=== PATIENT | female | born 2000 | race Caucasian/White ===

== ENCOUNTER 2018-04-20 08:42 | Emergency (ER) | payer SELFPAY ==
[~2018-04-20] VITALS: Ht 147.3 cm; Wt 57.2 kg
[2018-04-20 09:03] LABS: BILIRUBIN,URINE NEGATIVE (NEGATIVE); CLARITY,URINE CLEAR (CLEAR); COLOR,URINE YELLOW (YELLOW); KETONES,URINE NEGATIVE (NEGATIVE); LEUKOCYTE ESTERASE ,URINE NEGATIVE (NEGATIVE); NITRITE,URINE NEGATIVE (NEGATIVE); PROTEIN,URINE DIPSTICK NEGATIVE (NEGATIVE); URINE UROBILINOGEN 0.2 mg/dL (0.2 - 1)
[2018-04-20 09:18] LABS: BASOPHILS % 0.4 % (0.0-1.0); EOSINOPHILS # (AUTO) 0.1 (0.0-0.4); EOSINOPHILS % 0.5 % (0.0-6.0); HEMATOCRIT 37.7 % (34.2-44.1); LYMPHOCYTES # (AUTO) 2.7 (1.0-3.2); LYMPHOCYTES % 26.9 % (18.0-39.1); MEAN CORPUSCULAR HEMOGLOBIN 29.8 pg (28-32); MEAN CORPUSCULAR HGB CONC 34.5 g/dL (31-35); MEAN CORPUSCULAR VOLUME 86.5 fL (81-99); MONOCYTES # (AUTO) 0.6 (0.2-0.8); MONOCYTES % 6.3 % (4.4-11.3); NEUTROPHILS # (AUTO) 6.6 (2.1-6.9); NEUTROPHILS % 65.6 % (38.7-80.0); PLATELET COUNT 237 x10e3/uL (140-360); RED BLOOD COUNT 4.36 x10e6/uL (3.6-5.1); RED CELL DISTRIBUTION WIDTH 12.6 % (11.7-14.4)
[2018-04-20 09:27] LABS: BACTERIA,URINE RARE /HPF; EPITHELIAL CELLS,URINE FEW /LPF
[2018-04-20 10:02] LABS: ALANINE AMINOTRANSFERASE 14 IU/L (0-55); ALBUMIN/GLOBULIN RATIO 1.3 (0.8-2.0); ALKALINE PHOSPHATASE 61 IU/L (40-150); ANION GAP 15.3 mmol/L (8-16); BLOOD UREA NITROGEN 8 mg/dL (7-26); BUN/CREATININE RATIO 12 (6-25); CALCIUM 9.5 mg/dL (8.4-10.2); CARBON DIOXIDE 18 mmol/L (22-29); CHLORIDE 108 mmol/L (98-107); CREATININE, SERUM 0.65 mg/dL (0.57-1.11); EST GLOMERULAR FILTRATION RATE > 60 ML/MIN (60-); GLUCOSE 94 mg/dL (74-118); POTASSIUM 3.3 mmol/L (3.5-5.1); SODIUM 138 mmol/L (136-145)
[2018-04-20 10:10] LABS: HCG,QUANTITATIVE 4602.68 mIU/mL (0-10)
--- NOTE | 2018-04-20 10:51 | Diagnostic Imaging Report ---
PROCEDURE:1ST TRIMESTER OB ULTRASOUND COMPARISON:None. INDICATIONS:PELVIC PAIN FINDINGS: Multiple sagittal and axial images were obtained of the pelvis transabdominally and transvaginally. The uterus measures up to 7 cm in length. There is a gestational sac and yolk sac. The gestational sac measures 0.57 cm and the estimated gestational age is 5 weeks and 1 day. No evidence of pole. Small amount of free fluid is seen in the pelvis. No evidence of focal masses. The cervix is normal in appearance. The right ovary measures 4.5 cm. It is of normal echogenicity without focal masses. The left ovary measures 3.4 cm. It is of normal echogenicity without focal masses. No right or left paraovarian masses identified. CONCLUSION: Intrauterine with gestational sac and yolk sac with an estimated gestational age of 5 weeks and 1 day. No pole is visualized. Follow-up beta HCG and pelvic ultrasound per clinical protocol. Small amount of fluid in the pelvis, likely physiologic. Dictated by: GILDA MENDEZ M.D. on 04/20/2018 at 10:56 Electronically approved by: GILDA MENDEZ M.D. on 04/20/2018 at 10:56
[2018-04-20] MEDS ORDERED: PRENATAL DHA200 MG PO (11:05)
== END 2018-04-20 11:21 | disposition home or self-care (01) ==
LOC: ER 08:42
DX: O26.891 Other specified pregnancy related conditions, first trimester (principal); R10.2 Pelvic and perineal pain; R11.0 Nausea
CPT/HCPCS: 36415; 76801; 80053; 81001; 84702; 85025; 86900; 99284

== ENCOUNTER 2018-08-02 11:39 | Emergency (ER) | payer MEDICARE, OTHER ==
[~2018-08-02] VITALS: Ht 147.3 cm; Wt 60.8 kg
[~2018-08-02 11:39] MED LIST: PRENATAL DHA200 MG PO
--- OUTSIDE RECORDS SUMMARY | 2018-08-02 11:42 | XMS REPORT ---
Author Author [facility] Address Unknown Phone Unavailable Care Team Providers Care Finisher Tailor Apprentice Name Role Phone Saturnino RON Unavailable Unavailable Problems This patient has no known problems. Allergies, Adverse Reactions, Alerts This patient has no known allergies or adverse reactions. Medications This patient has no known medications. Results Test Description Test Time Test Comments Text Results Atomic Results Result Comments US OB 1st TRIM SINGLE GEST 2018-04-20 10:56:00 [place] [address] Patient Name: LIN MERRITT MR #: [id number] : 2000 Age/Sex: 17/F Req #: [id number] Adm Physician: Ordered by: MATHEW RON MD Report #: [id number] Location: ER Room/Bed: Procedure: [id number] US/US OB 1st TRIM SINGLE GEST Exam Date: Exam Time: REPORT STATUS: Signed PROCEDURE: 1ST TRIMESTER OB ULTRASOUND COMPARISON: None. INDICATIONS: PELVIC PAIN FINDINGS: Multiple sagittal and axial images were obtained of the pelvis transabdominally and transvaginally. The uterus measures up to 7 cm in length. There is a gestational sac and yolk sac. The gestational sac measures 0.57 cm and the estimated gestational age is 5 weeks and 1 day. No evidence of pole. Small amount of free fluid is seen in the pelvis. No evidence of focal masses. The cervix is normal in appearance. The right ovary measures 4.5 cm. It is of normal echogenicity without focal masses. The left ovary measures 3.4 cm. It is of normal echogenicity without focal masses. No right or left paraovarian masses identified. CONCLUSION: Intrauterine with gestational sac and yolk sac with an estimated gestational age of 5 weeks and 1 day. No pole is visualized. Follow-up beta HCG and pelvic ultrasound per clinical protocol. Small amount of fluid in the pelvis, likely physiologic. Dictated by: GILDA MENDEZ M.D. on 04/20/2018 at 10:56 Electronically approved by: GILDA MENDEZ M.D. on 04/20/2018 at 10:56 Dictated By: GILDA MENDEZ MD [id number] Transcribed By: MOSES on 04/20/18 1056 COPY TO: MATHEW RON MD
== END 2018-08-02 11:53 | disposition left against medical advice (07) ==
LOC: ER 11:39
DX: R05 Cough (principal); Z33.1 Pregnant state, incidental

== ENCOUNTER 2019-11-05 05:41 | Emergency (ER) | payer OTHER ==
[~2019-11-05] VITALS: Ht 147.3 cm; Wt 57.6 kg
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
== END 2019-11-05 08:11 | disposition home or self-care (01) ==
LOC: ER 05:41
DX: S00.83XA Contusion of other part of head, initial encounter (principal); W20.8XXA Other cause of strike by thrown, projected or falling object, initial encounter; Y99.0 Civilian activity done for income or pay
CPT/HCPCS: 70450; 99283

== ENCOUNTER 2022-10-19 18:06 | Emergency (ER) | payer OTHER ==
[~2022-10-19] VITALS: Ht 147.3 cm; Wt 57.6 kg
[2022-10-19] MEDS ORDERED: KETOROLAC TROME10 MG PO (18:46)
[2022-10-19] MEDS ORDERED: METHOCARBAMOL750 MG PO (18:46)
[2022-10-19] MEDS ORDERED: MEDROL4 M2 PO (18:46)
[2022-10-19 21:30] VITALS: BP 134/71
== END 2022-10-19 20:30 | disposition home or self-care (01) ==
LOC: ER 18:36
DX: M54.50 Low back pain, unspecified (principal); X50.1XXA Overexertion from prolonged static or awkward postures, initial encounter; Y92.89 Other specified places as the place of occurrence of the external cause; F41.9 Anxiety disorder, unspecified
CPT/HCPCS: 99283

== ENCOUNTER 2022-11-30 00:36 | Emergency (ER) | payer OTHER ==
[~2022-11-30] VITALS: Ht 147.3 cm; Wt 57.6 kg
[~2022-11-30 00:36] MED LIST changes: +KETOROLAC TROME10 MG PO; +MEDROL4 M2 PO; +METHOCARBAMOL750 MG PO
[2022-11-30] MEDS ORDERED: NAPROXEN 250 MG TAB PO ONE (01:00)
[2022-11-30] MEDS ORDERED: NAPROSYN500 MG PO (02:21)
[2022-11-30 02:30] VITALS: BP 110/76
== END 2022-11-30 02:29 | disposition home or self-care (01) ==
LOC: ER 00:41
DX: S93.691A Other sprain of right foot, initial encounter (principal); M72.2 Plantar fascial fibromatosis; X50.1XXA Overexertion from prolonged static or awkward postures, initial encounter; Y93.01 Activity, walking, marching and hiking; Y92.89 Other specified places as the place of occurrence of the external cause; F17.210 Nicotine dependence, cigarettes, uncomplicated
CPT/HCPCS: 99283